=== PATIENT | female | born 1945 | race African-American/Black ===

== ENCOUNTER 2019-06-28 10:00 | Emergency (ER) | payer MEDICARE, MEDICAID ==
[~2019-06-28] VITALS: Ht 167.6 cm; Wt 77.0 kg
[2019-06-28] MEDS ORDERED: AMLO10TA80 PO (10:09)
[2019-06-28] MEDS ORDERED: ACETAMINOPHEN 325MG TABLET PO STA (10:21)
[2019-06-28 10:58] LABS: BASOPHILS % 0.4 % (0.0-2.0); EOSINOPHILS % 0.6 % (0.0-5.0); HEMATOCRIT. 35.6 % (36.0-48.0); HEMOGLOBIN. 11.7 g/dL (12.0-16.0); LYMPHOCYTES % 18.1 % (20.0-50.0); MEAN CORPUSCULAR VOLUME 88.4 fL (81.0-99.0); MONOCYTES % 1.9 % (2.0-8.0); PLATELET 334 x1000/uL (130-400); RED BLOOD CELL COUNT 4.03 mill/uL (4.2-5.4); RED CELL DISTRIBUTION WIDTH 15.7 % (11.6-14.6)
[2019-06-28 11:04] LABS: CHLORIDE 107 mEq/L (98-107)
[2019-06-28 11:06] LABS: INR 0.9; PROTHROMBIN TIME 9.8 sec (9.6-11.0)
[2019-06-28] MEDS ORDERED: SODIUM CHLORIDE 0.9% 1,000 ML IV ONE (11:10)
[2019-06-28] MEDS ORDERED: POTASSIUM CHLORIDE 20MEQ TABLET SR PO ONE (11:15)
[2019-06-28] MEDS ORDERED: SODIUM CHLORIDE 0.9% 1000ML BAG (SEPSIS BOLUS) IV ONE (12:30)
[2019-06-28] MEDS ORDERED: MECLIZINE 25MG TABLET PO ONE (12:45)
[2019-06-28 12:57] LABS: CLARITY URINE CLEAR (CLEAR); COLOR URINE YELLOW (YELLOW); KETONES URINE NEGATIVE (NEGATIVE); LEUKOCYTE ESTERASE URINE NEGATIVE (NEGATIVE); NITRITE URINE NEGATIVE (NEGATIVE); OCCULT BLOOD URINE NEGATIVE (NEGATIVE); PH URINE 5.5 (4.5-8.0); PROTEIN URINE NEGATIVE (NEGATIVE); SPECIFIC GRAVITY URINE 1.011 (1.005-1.030); UROBILINOGEN URINE 0.2 E.U./dL (0.2-1.0)
[2019-06-28 19:00] VITALS: BP 142/82
== END 2019-06-28 17:28 | disposition home or self-care (01) ==
LOC: ER 10:00 → EDBEDREQ 12:29 → ENRESERV 12:39 → CANRESERV 12:39 → SUPCPDRO 14:46 → EDBEDREQ 16:32 → CANBEDREQ 16:40 → ER 17:28 → CANBEDREQ 17:28
DX: R42 Dizziness and giddiness (principal); M54.30 Sciatica, unspecified side; E86.0 Dehydration; E87.6 Hypokalemia; D64.9 Anemia, unspecified; E11.9 Type 2 diabetes mellitus without complications; I10 Essential (primary) hypertension; E78.00 Pure hypercholesterolemia, unspecified; Z88.0 Allergy status to penicillin; Z88.8 Allergy status to other drugs, medicaments and biological substances; Z90.710 Acquired absence of both cervix and uterus; Z98.890 Other specified postprocedural states
CPT/HCPCS: 36415; 70450; 71045; 80053; 81003; 83605; 83880; 84484; 85025; 85379; 85610; 87040; 87086; 93005; 93970; 96360; 99284; J7030; J8597